=== PATIENT | female | born 1990 | race Caucasian/White ===

== ENCOUNTER → 2016-07-18 | Outpatient (CLI) | payer OTHER ==
[2016-07-18 12:03] LABS: ANION GAP 6 MEQ/L (8-16); BLOOD UREA NITROGEN 14 MG/DL (7-18); CALCIUM LEVEL 9.1 MG/DL (8.5-10.1); CARBON DIOXIDE LEVEL 31 MEQ/L (21-32); CHLORIDE LEVEL 105 MEQ/L (98-107); CHOLESTEROL LEVEL 169 MG/DL (<200); CREATININE FOR GFR 0.95 MG/DL (0.55-1.02); FREE T4 1.23 NG/DL (0.76-1.46); GLOMERULAR FILTRATION RATE > 60.0 (>60); GLUCOSE, FASTING 80 MG/DL (70-105); POTASSIUM SERUM 4.5 MEQ/L (3.5-5.1); SODIUM LEVEL 142 MEQ/L (136-145); TRIGLYCERIDES LEVEL 43 MG/DL (<150)
== END ==
LOC: M WUC 10:05
PROVIDERS: ATTEND Physician Assistant
DX: E06.3 Autoimmune thyroiditis (principal)

== ENCOUNTER → 2017-02-19 | Outpatient (CLI) | payer OTHER ==
[2017-02-19 13:10] LABS: FREE T4 1.31 NG/DL (0.76-1.46)
== END ==
LOC: M WUC 08:57
PROVIDERS: ATTEND Family Medicine
DX: E06.3 Autoimmune thyroiditis (principal)

== ENCOUNTER → 2018-08-06 | Outpatient (CLI) | payer OTHER ==
--- NOTE | 2018-08-06 14:39 | REP ---
Clinical: Pain to the first toe. Technique: AP, lateral, bilateral oblique views of the right first toe. Findings: No acute fracture or dislocation. Skeletal structures, joint spaces, and surrounding soft tissues are relatively normal for age. Impression: No acute fracture or dislocation. Electronically Signed by Moo Reed MD 08/06/2018 02:30 P
== END ==
LOC: M WUC 14:15
PROVIDERS: ATTEND Physician Assistant
DX: M79.674 Pain in right toe(s) (principal)

== ENCOUNTER → 2018-09-14 | Outpatient (CLI) | payer OTHER ==
[2018-09-14 09:56] LABS: FREE T4 1.19 NG/DL (0.76-1.46); THYROID STIMULATING HORMONE 2.24 uIU/ML (0.358-3.740)
[2018-09-14 09:58] LABS: TOTAL 25(OH) VITAMIN D 34.2 NG/ML (30.0-100.0)
== END ==
LOC: M WUC 08:04
PROVIDERS: ATTEND Family Medicine
DX: E06.3 Autoimmune thyroiditis (principal)

== ENCOUNTER → 2019-01-06 | Outpatient (CLI) | payer OTHER ==
[2019-01-06 18:01] LABS: BASO # 0.1 10^3/uL (0.0-0.2); BASO % 0.5 % (0.0-1.0); EOS # 0.3 10^3/uL (0.0-0.50); EOS % 2.6 % (0.0-3.0); HEMATOCRIT 39.2 % (36.0-47.0); LYMPH # 1.8 10^3/uL (1.5-6.5); LYMPH % 18.5 % (24.0-44.0); MEAN CORPUSCULAR HEMOGLOBIN 30.1 pg (27.0-33.0); MEAN CORPUSCULAR HGB CONC 35.7 g/dl (32.0-36.5); MEAN CORPUSCULAR VOLUME 84.3 fl (80.0-96.0); MONO # 0.7 10^3/uL (0.0-0.8); MONO % 7.3 % (0.0-5.0); NEUTROPHILS # 6.9 10^3/uL (1.8-7.7); NEUTROPHILS % 70.7 % (36.0-66.0); PLATELET COUNT, AUTOMATED 268 10^3/uL (150-450); RED BLOOD COUNT 4.65 10^6/uL (4.00-5.40); WHITE BLOOD COUNT 9.8 10^3/uL (4.0-10.0)
[2019-01-06 18:11] LABS: FREE T4 1.29 NG/DL (0.76-1.46)
[2019-01-06 18:23] LABS: RUBELLA IgG QUALITATIVE IMMUNE (IMMUNE)
[2019-01-06 18:52] LABS: HIV 1&2 SCREEN CENTAUR NEGATIVE (NEGATIVE)
[2019-01-06 19:54] LABS: CHLAMYDIA DNA AMPLIFICATION NEGATIVE (NEGATIVE); GC DNA AMPLIFICATION NEGATIVE (NEGATIVE)
[2019-01-09 12:02] LABS: HEPATITIS C VIRUS ABY INDEX 0.1 INDEX (<0.8)
== END ==
LOC: M SMT 13:44
PROVIDERS: ATTEND Advanced Practice Midwife
DX: Z34.81 Encounter for supervision of other normal pregnancy, first trimester (principal); Z3A.00 Weeks of gestation of pregnancy not specified

== ENCOUNTER → 2019-01-13 | Outpatient (CLI) | payer OTHER | LOC: M SMT 09:47 | PROVIDERS: ATTEND Advanced Practice Midwife | DX: Z13.79 Encounter for other screening for genetic and chromosomal anomalies (principal) ==

== ENCOUNTER → 2019-02-10 | Outpatient (CLI) | payer OTHER ==
[2019-02-10 18:55] LABS: FREE T4 1.33 NG/DL (0.76-1.46); THYROID STIMULATING HORMONE 3.31 uIU/ML (0.358-3.740)
== END ==
LOC: M SMT 12:07
PROVIDERS: ATTEND Advanced Practice Midwife
DX: O99.282 Endocrine, nutritional and metabolic diseases complicating pregnancy, second trimester (principal)

== ENCOUNTER → 2019-03-10 | Outpatient (CLI) | payer OTHER ==
--- NOTE | 2019-03-10 19:15 | REP ---
OB ULTRASOUND: Real-time sonographic evaluation of the gravid uterus performed. There is a single living intrauterine gestation, the estimated gestational age 18 weeks, EDC 08/11/2019. Today's measurements indicate appropriate growth. BPD 43 mm = 19 weeks 0 days, 78th percentile HC 160 mm = 18 weeks 6 days, 75th percentile AC 135 mm = 19 weeks 0 days, 70th percentile FL 27 mm = 18 weeks 2 days, 56th percentile HC/AC ratio 1.19, within normal range. Estimated weight 250 grams, 73rd percentile. Cervix is closed and measures 3.3 cm in length. heart rate 139 beats per minute. SEEN/GROSSLY UNREMARKABLE Lateral ventricles yes Posterior fossa yes Upper lip yes Four-chamber heart no LVOT no RVOT no Stomach yes Cord insertion yes Three vessel cord yes Kidneys yes Bladder yes Spine yes position: Oblique with head toward the maternal right side. Placenta: Anterior and grade 0 with no previa or abruption. Amniotic fluid: Within normal limits. Electronically Signed by Alex Cohen MD 03/13/2019 11:20 P
== END ==
LOC: M RAD 14:22
PROVIDERS: ATTEND Advanced Practice Midwife
DX: Z34.82 Encounter for supervision of other normal pregnancy, second trimester (principal)

== ENCOUNTER → 2019-04-14 | Outpatient (CLI) | payer OTHER ==
--- NOTE | 2019-04-14 19:16 | REP ---
Obstetric ultrasound for anatomy follow-up: Comparison is 03/10/2019. On the comparison study the lungs, four-chamber view of the heart and cardiac right and left ventricular outflow tracts and lower extremities are suboptimally demonstrated because of position. The remainder of the anatomy was unremarkable previously. On the study today the lungs, four-chamber view of the heart, cardiac right and left ventricular outflow tracts and lower extremities are optimally demonstrated and are unremarkable. The remainder of the anatomy is unremarkable as previously. There are no anomalies. There is a single intrauterine gestation in a vertex presentation. There is movement and cardiac activity. heart rate is 136 beats minute. The placenta is anterior, there is no previa or abruptio. Placenta is grade zero. The amniotic fluid volume subjectively is normal. Gestational age by today's ultrasound is 23 weeks 4 days/JOSE 08/07/2019. Gestational age by the first ultrasound is 23 weeks 5 days/JOSE 08/06/2019. Gestational age by LMP is 23 weeks 0 days/JOSE 08/10/2019. weight is 650 grams/1 pound, 6 ounces. This is the 77th percentile for 23 weeks 0 days. Electronically Signed by Alex Castellano MD 04/14/2019 07:08 P
== END ==
LOC: M RAD 15:38
PROVIDERS: ATTEND Advanced Practice Midwife
DX: Z36.9 Encounter for antenatal screening, unspecified (principal); Z3A.23 23 weeks gestation of pregnancy

== ENCOUNTER → 2019-05-12 | Outpatient (CLI) | payer OTHER ==
[2019-05-12 14:17] LABS: HEMATOCRIT 37.6 % (36.0-47.0); HEMOGLOBIN 12.9 g/dl (12.0-15.5); MEAN CORPUSCULAR HEMOGLOBIN 30.3 pg (27.0-33.0); MEAN CORPUSCULAR HGB CONC 34.3 g/dl (32.0-36.5); MEAN CORPUSCULAR VOLUME 88.3 fl (80.0-96.0); PLATELET COUNT, AUTOMATED 247 10^3/uL (150-450); RED BLOOD COUNT 4.26 10^6/uL (4.00-5.40); WHITE BLOOD COUNT 10.6 10^3/uL (4.0-10.0)
[2019-05-12 14:48] LABS: FREE T4 1.15 NG/DL (0.76-1.46); THYROID STIMULATING HORMONE 1.87 uIU/ML (0.358-3.740)
== END ==
LOC: M PLALAB 10:21
PROVIDERS: ATTEND Advanced Practice Midwife
DX: O99.282 Endocrine, nutritional and metabolic diseases complicating pregnancy, second trimester (principal)

== ENCOUNTER → 2019-07-14 | Outpatient (REF) | payer OTHER | LOC: M SFHCWAGY 13:10 | PROVIDERS: ATTEND Obstetrics & Gynecology | DX: O99.283 Endocrine, nutritional and metabolic diseases complicating pregnancy, third trimester (principal) ==

== ENCOUNTER 2019-08-19 09:30 | Inpatient (IN) | payer OTHER ==
[~2019-08-19] VITALS: Ht 167.6 cm; Wt 82.3 kg
[2019-08-19] VITALS (9 sets, daily range): BP systolic 104–139; BP diastolic 53–74
[2019-08-19] MEDS ORDERED: PREN29TA4 PO (09:52)
[2019-08-19] MEDS ORDERED: SYNT88TA2 PO (09:52)
[2019-08-19] MEDS ORDERED: OMEG10002 PO (09:52)
[2019-08-19] MEDS ORDERED: MULTCAP PO (09:53)
[2019-08-19] MEDS: miSOPROStol 50 MCG 1/2 TAB (S0191) PO SCH ×4 (10:44→23:11)
[2019-08-19 10:50] LABS: HEMATOCRIT 36.1 % (36.0-47.0); HEMOGLOBIN 12.3 g/dl (12.0-15.5); MEAN CORPUSCULAR HEMOGLOBIN 28.4 pg (27.0-33.0); MEAN CORPUSCULAR HGB CONC 34.1 g/dl (32.0-36.5); MEAN CORPUSCULAR VOLUME 83.4 fl (80.0-96.0); PLATELET COUNT, AUTOMATED 197 10^3/uL (150-450); RED BLOOD COUNT 4.33 10^6/uL (4.00-5.40); WHITE BLOOD COUNT 8.8 10^3/uL (4.0-10.0)
--- NOTE | 2019-08-19 14:39 | HPEPDOC ---
Obstetrical History & Physical General Date of Admission Aug 19, 2019 at 09:30 History of Present Illness Kamila is a 28-year-old 1, para 0 who presents at 41 weeks 1 day estimated gestational age by 9 week ultrasound for induction of labor for postdates. She is had unremarkable course. She initiated care first trimesters been appropriate throughout Chief Complaint: Induction of labor Information Provided By: Patient Age: 28 : 1 Care Care: Good Care Dating Final EDC: Aug 11, 2019 Final EDC by: 1st trimester ([place]) Estimated Date of Confinement: Aug 11, 2019 Past Medical History Past Obstetrical History : Past Obstetrical History: Primgravida [employer] History: No pertinent history Past Medical History Medical History Hypothyroidism Surgical History: [place] teeth Family History Significant Family History: Cancer, Hypertension Social History Marital Status: Psychosocial History: No pertinent psych hx * Smoker: non-smoker Drugs: denies Allergies Coded Allergies: alfalfa (Verified Allergy, Unknown, runny nose,itchy,swollen eyes,hayfever, 08/19/19) Medications Scheduled Levothyroxine Sodium (Synthroid) 88 Mcg Tablet, 1 TAB PO DAILY Multivitamin (Multivitamins) 1 Each Capsule, 1 CAP PO DAILY [place]-3/Dha/Epa/Fish Oil (Fish Oil 1,000 mg Softgel) 1 Each Capsule, 1 CAP PO DAILY Prenat 115/Iron Fum/Folic/Dss ( 19 Tablet) 1 Each Tablet, 1 TAB PO DAILY Physical Examination Physical Examination GENERAL: Alert and oriented times three. BREAST: . ABDOMEN: Gravid and non-tender to touch. FETUS: Is vertex (VTX) by sterile vaginal examination (SVE), fetus is vertex (VTX) by Vahid. HEART RATE: Regular rate and rhythm. LUNGS: Clear to auscultation (CTA). Vital Signs/I&O Vital Signs Date Time Temp Pulse Resp B/P (MAP) Pulse Ox O2 Delivery O2 Flow Rate FiO2 08/19/19 13:41 90 20 139/66 (90) 08/19/19 13:04 98 Room Air 08/19/19 12:05 97.4 Laboratory Data 24H LABS Laboratory Tests 2 08/19/19 09:42: Serology Scanned Report Hepatitis B Testing 08/19/19 10:38: Nucleated Red Blood Cells % (auto) 0.0 CBC/BMP Laboratory Tests 08/19/19 10:38 Pertinent Laboratoy Data Blood Type: B+ RBC Antibody Screen: Negative HIV: Negative Hepatitis B: Negative Hepatitis C: Negative Rapid Plasma Reagin: Nonreactive Rubella: Immune Chlamydia/Gonorrhea: Negative Group B Streptococcus: Negative Anatomy Ultrasound Placenta Location: Anterior Normal Anatomy: Yes Placenta Previa: No Estimated Weight (grams): 4100 Vaginal Examination Dilation: 1cm Effacement: 50% Cervical Consistency: Medium Cervical Position: Posterior Presentation: Cephalic presentation Assessment Accelerations: Positive Tocometer Contractions: No Assessment/Plan Assessment Kamila is a 28-year-old (G) 1 para 41 weeks by 9-week ultrasound. Presents to Labor and Delivery (L&D) induction of labor. Reassuring status. Plan Admit and orient. Chief Operator and consent. Diet: Regular. Group B Streptococcus (GBS) negative. Labs and intravenous (IV) per unit protocol. Will begin induction with Cytotec Counseled on Pitocin and induction of labor (IOL). Anticipate normal spontaneous delivery (). C-S as appropriate. ROWAN MCMULLEN MD. Aug 19, 2019 14:39
[2019-08-20] VITALS (40 sets, daily range): BP systolic 83–160; BP diastolic 45–102
[2019-08-20] MEDS: miSOPROStol 50 MCG 1/2 TAB (S0191) PO SCH (03:25)
[2019-08-20] MEDS: LR 1,000 ML IV SCH ×2 (08:55→14:56)
[2019-08-20] MEDS ORDERED: OXYTOCIN DRIP 30 UNITS in IV 1 EA IV SCH (09:00)
[2019-08-20] MEDS ORDERED: FENTANYL 2MCG/ML ROPIVACAINE 0.2% IN 0.9% NACL 100ML IVBAG As Ordered ONE (19:30)
[2019-08-20] MEDS ORDERED: ePHEDrine SULFATE 25 MG/5 ML(5MG/ML) SYRINGE IV PRN (21:00)
[2019-08-20] MEDS ORDERED: ONDANSETRON 4MG/2ML VIAL (J2405) IV PRN (21:00)
[2019-08-20] MEDS ORDERED: REFRIGERATOR IV KEYS XX PRN (21:00)
[2019-08-20] MEDS ORDERED: diphenhydrAMINE INJ 50MG/ML VIAL (J1200) IV PRN (21:00)
[2019-08-20] MEDS: FENTANYL/ROPIVACAINE/NACL BAG 100 ML EPIDURAL SCH (21:00)
[2019-08-20] MEDS ORDERED: NALOXONE INJ 0.4 MG/1 ML VIAL (J2310) IV PRN (21:00)
[2019-08-20] MEDS ORDERED: EPIDURAL COMMENT XX SCH (21:00)
[2019-08-20] MEDS ORDERED: EPIDURAL/PCA KEYS XX PRN (21:00)
[2019-08-21] VITALS (24 sets, daily range): BP systolic 88–131; BP diastolic 50–73
[2019-08-21] MEDS: LR 1,000 ML IV SCH ×3 (01:00→21:53)
[2019-08-21] MEDS ORDERED: FENTANYL 2MCG/ML ROPIVACAINE 0.2% IN 0.9% NACL 100ML IVBAG As Ordered ONE (04:36)
[2019-08-21] MEDS: FENTANYL/ROPIVACAINE/NACL BAG 100 ML EPIDURAL SCH (04:42)
--- NOTE | 2019-08-21 06:58 | IPNPDOC ---
Obstetrical Progress Note Date of Service Aug 20, 2019 Subjective Doing well w/o complaints. cx; 1-2/50/-3,Explosives Handler cath placed 60/40 Objective Vital Signs Date Time Temp Pulse Resp B/P (MAP) Pulse Ox O2 Delivery O2 Flow Rate FiO2 08/21/19 04:41 63 95/54 (68) 08/20/19 18:33 97.9 20 98 Room Air Assessment Variability: Moderate Heart Rate Tracing: Category I Tocometer Contractions: Yes Frequency: regular Sterile Vaginal Examination Dilation: 1cm Effacement (%): 50% Station: -3 Cervical Consistency: Medium Cervical Position: Posterior Postion/Presentation: Cephalic presentation Assessment and Plan Status: Reassuring Group B Streptococcus: Negative ROWAN MCMULLEN MD. Aug 21, 2019 06:58
--- NOTE | 2019-08-21 07:00 | IPNPDOC ---
Obstetrical Progress Note Subjective Comfortable with epidural. Min cx changes over 9hrs. Currently 475/-2 Objective Vital Signs Date Time Temp Pulse Resp B/P (MAP) Pulse Ox O2 Delivery O2 Flow Rate FiO2 08/21/19 04:41 63 95/54 (68) 08/20/19 18:33 97.9 20 98 Room Air Assessment Variability: Moderate Accelerations: Positive Heart Rate Tracing: Category I Tocometer Frequency: regular Sterile Vaginal Examination Dilation: 4 cm Effacement (%): 80% Station: -2 Cervical Consistency: Soft Postion/Presentation: Cephalic presentation Assessment and Plan Group B Streptococcus: Negative ROWAN MCMULLEN MD. Aug 21, 2019 07:00
[2019-08-21] MEDS ORDERED: AZITHROMYCIN INJ 500 MG, VIAL MATE ADAPTER 1 EACH in D5W 250 ML IV ONE (07:15)
[2019-08-21] MEDS ORDERED: BICITRA 30ML SOLN UDC PO ONE (07:15)
[2019-08-21] MEDS ORDERED: ceFAZolin SOD 2 GM in IV 1 EA IV ONE (07:15)
[2019-08-21] MEDS ORDERED: ceFAZolin 2 GM/D5W 50 ML IV BAG (J0690 PER 500MG) As Ordered ONE (07:16)
[2019-08-21] MEDS ORDERED: BICITRA 30ML SOLN UDC As Ordered ONE (07:16)
[2019-08-21] MEDS ORDERED: AZITHROMYCIN INJ 500MG VIAL (J0456) As Ordered ONE (07:17)
[2019-08-21] MEDS ORDERED: MORPHINE PRES-FREE INJ 10 MG/10 ML VIAL (J2274) As Ordered ONE (07:23)
[2019-08-21] MEDS ORDERED: OXYTOCIN INJ 10 UNITS/ML VIAL (J2590) As Ordered ONE (07:25)
[2019-08-21] MEDS ORDERED: LIDOCAINE 2% W/EPIN INJ 20ML **PRES FREE As Ordered ONE (07:27)
[2019-08-21] MEDS ORDERED: dexameTHASONE 4 MG/ML 1ML VIAL (J1100) As Ordered ONE (07:54)
[2019-08-21] MEDS ORDERED: ONDANSETRON 4MG/2ML VIAL (J2405) As Ordered ONE (07:54)
[2019-08-21] MEDS ORDERED: METOCLOPRAMIDE INJ 10MG/2ML VIAL (J2765) IV PRN (08:00)
[2019-08-21] MEDS ORDERED: NALBUPHINE HCL 10 MG/ML AMP (J2300) IV PRN ×2 (08:00→09:00)
[2019-08-21] MEDS ORDERED: diphenhydrAMINE INJ 50MG/ML VIAL (J1200) IV PRN (08:00)
[2019-08-21] MEDS ORDERED: ONDANSETRON 4MG/2ML VIAL (J2405) IV PRN ×3 (08:00→09:00)
[2019-08-21] MEDS ORDERED: NALOXONE INJ 0.4 MG/1 ML VIAL (J2310) IV PRN ×2 (08:00)
[2019-08-21] MEDS ORDERED: ePHEDrine SULFATE 25 MG/5 ML(5MG/ML) SYRINGE As Ordered ONE (08:21)
[2019-08-21] MEDS ORDERED: PHENYLephrine HCL 500 MCG/5 ML (100MCG/ML) SYRINGE (J2370) As Ordered ONE (08:21)
[2019-08-21] MEDS ORDERED: OXYTOCIN 30 UNITS IN 0.9% NaCl 500ML IV BAG (J2590) As Ordered ONE (08:37)
[2019-08-21] MEDS ORDERED: OXYTOCIN DRIP 30 UNITS in IV 1 EA IV SCH (08:41)
[2019-08-21] MEDS ORDERED: RHOGAM 300 MCG (1500 IU) INJ (J2790) IM SCH (08:45)
[2019-08-21] MEDS ORDERED: PERCOCET 5MG/325MG TAB PO PRN (08:45)
[2019-08-21] MEDS ORDERED: MOM 30ML SUSPENSION UDC PO PRN (08:45)
[2019-08-21] MEDS ORDERED: MEASLES,MUMPS,RUBELLA VACCINE INJ (MMR-II) (90707) SC SCH (08:45)
--- NOTE | 2019-08-21 08:48 | ROOPDOC ---
[facility] Report Of Operation Report of Operation DATE OF PROCEDURE: 08/21/19 SURGEON: Cici Laguna M.D. PERCH MACHINE INSPECTOR: Flakita Laguerre CNM ANESTHESIA:. Epidural ESTIMATED BLOOD LOSS: 700 mL URINE OUTPUT: 25 mL INTRAVENOUS FLUIDS: 1 L lactated Ringer solution PREOPERATIVE ANTIBIOTICS:. 2 g of Ancef and 500mg azithromycin OPERATIVE FINDINGS: Liveborn female , Apgars 9 and 9. Weight was 3080 g or 8 lbs. 9 oz. SPECIMENS:. None INDICATIONS FOR PROCEDURE: Arrested dilation DESCRIPTION OF PROCEDURE: After informed consent was obtained and written consent was reviewed. The patient was brought to the operating room where spinal anesthesia was placed. She was then placed in the supine position with a left lateral tilt. Cespedes catheter was placed and to gravity. Patient was then prepped and draped in the normal sterile fashion. A timeout operating room was performed identifying the patient, procedure be performed as well as drug allergies. Anesthesia was tested and deemed to be adequate. Pfannenstiel skin incision was made and this was carried down to the underlying rectus fascia. The fascia was then scored and this incision was extended bilaterally. The fascia was then dissected off the underlying rectus muscle superiorly and inferiorly. The rectus muscles were then in the midline. The peritoneum is then entered. Vesicouterine peritoneum was then tented and excised and a bladder flap was created. Mobius retractor was then placed. Next, a curvilinear incision was then made in the lower uterine segment. Amniotomy was performed, productive, clear fluid. The head was brought to the level of the incision atraumatically and delivered along the shoulders and corpus. The cord was clamped 2. The infant was brought over to the warmer with a good cry. Placenta was drained and delivered grossly intact. The uterus was cleared of all clots and debris and the uterine incision was then closed in 2 layers using 0 Vicryl, first in a running locking fashion followed by second layer for imbrication. The abdomen suctioned. Surgical sites reinspected and noted be hemostatic. The retractor was then removed. The anterior peritoneum was then reapproximated with 3-0 Vicryl. The rectus muscles were reapproximated 3-0 Vicryl. The fascia was then closed using 0 Vicryl in a running nonlocking fashion. The subcutaneous tissues was then irrigated and suctioned. Subcutaneous tissue was reapproximated using 3-0 Vicryl. Several subdermal stitch is placed using 3-0 Vicryl and the skin was closed with 4-0 Monocryl and subarticular fashion. This incision was then cleaned and dried and was dressed. The patient was then taken to recovery in stable condition. All counts were correct. The cup was decided to do the My family assistant played in an essential roll during the operation. They assisted with tissue identification retraction, delivery of the , as well as wound closure. CICI LAGUNA MD. Aug 21, 2019 08:48
[2019-08-21] MEDS: PRENATAL VITAMINS CHEWABLE TABLET PO SCH (09:00)
[2019-08-21] MEDS: DOCUSATE SODIUM 100 MG CAP PO SCH ×2 (09:00→21:09)
[2019-08-21] MEDS ORDERED: fentaNYL 100 MCG/2 ML INJECTION (J3010) As Ordered ONE (09:01)
[2019-08-21] MEDS: fentaNYL 100 MCG/2 ML INJECTION (J3010) IV PRN ×2 (09:05→09:10)
[2019-08-21] MEDS ORDERED: KETOROLAC 30 MG/ML VIAL (J1885) As Ordered ONE (09:22)
[2019-08-21] MEDS: KETOROLAC 30 MG/ML VIAL (J1885) IV SCH ×3 (09:23→21:09)
[2019-08-21] MEDS: PERCOCET 5MG/325MG TAB PO PRN (12:02)
[2019-08-22] MEDS: LR 1,000 ML IV SCH (00:41)
[2019-08-22 02:00] VITALS: BP 102/57
[2019-08-22] MEDS: KETOROLAC 30 MG/ML VIAL (J1885) IV SCH (02:05)
[2019-08-22 06:00] VITALS: BP 110/51
[2019-08-22 07:11] LABS: HEMATOCRIT 29.2 % (36.0-47.0); HEMOGLOBIN 9.9 g/dl (12.0-15.5); MEAN CORPUSCULAR HEMOGLOBIN 28.7 pg (27.0-33.0); MEAN CORPUSCULAR HGB CONC 33.9 g/dl (32.0-36.5); MEAN CORPUSCULAR VOLUME 84.6 fl (80.0-96.0); PLATELET COUNT, AUTOMATED 169 10^3/uL (150-450); RED BLOOD COUNT 3.45 10^6/uL (4.00-5.40); WHITE BLOOD COUNT 11.1 10^3/uL (4.0-10.0)
--- NOTE | 2019-08-22 07:40 | IPNPDOC ---
Progress Note Date of Service: Aug 22, 2019 Day#: 1 Progress Note SUBJECT: Patient is a 28-year-old female who is a who had a section for failure to progress. Her catheter is out and she has a saline lock in. She has been ambulating, voiding spontaneously without issue and tolerating regular diet. Breast feeding without issue. OBJECTIVE: VITAL SIGNS: Within normal limits, afebrile. Alert and oriented times three. Breath sounds clear to auscultation. Heart rate: Regular rate and rhythm, no murmurs, rubs or gallops. Abdomen: Fundus firm at U-1. Dressing is present with a small amount of blood present on dressing. Minimal lochia. ASSESSMENT: Day 1 postoperative. PLAN: 1. Continue with nursing supportive care and breast feeding support. 2. Encouraged ambulation today and patient may shower. 3. Continue with pain management. 4. Anticipate discharge to home tomorrow. VS, I&O, 24H, Fishbone Vital Signs/I&O Vital Signs Date Time Temp Pulse Resp B/P (MAP) Pulse Ox O2 Delivery O2 Flow Rate FiO2 08/22/19 06:00 98.5 76 20 110/51 (70) 98 Room Air I&O- Last 24 Hours up to 6 AM 08/22/19 06:00 Intake Total 993.1 ml Output Total 2375 ml Balance -1381.9 ml Laboratory Data 24H LABS Laboratory Tests 2 08/22/19 06:56: Nucleated Red Blood Cells % (auto) 0.0 CBC/BMP Laboratory Tests 08/22/19 06:56 WENDIE VICTORIA CNM Aug 22, 2019 07:40
[2019-08-22] MEDS: LEVOTHYROXINE 88MCG TABLET (0.088 MG) PO SCH (09:45)
[2019-08-22] MEDS: PRENATAL VITAMINS CHEWABLE TABLET PO SCH (09:45)
[2019-08-22] MEDS: DOCUSATE SODIUM 100 MG CAP PO SCH ×2 (09:45→21:17)
[2019-08-22 10:08] VITALS: BP 120/61
[2019-08-22] MEDS: IBUPROFEN 800 MG TAB PO SCH ×2 (10:49→18:41)
[2019-08-22] MEDS: PERCOCET 5MG/325MG TAB PO PRN ×2 (13:47→21:18)
[2019-08-22 14:00] VITALS: BP 92/52
[2019-08-22] MEDS ORDERED: PERCOCET PO (15:33)
[2019-08-22] MEDS ORDERED: IBUP80TA PO (15:33)
[2019-08-22 18:03] VITALS: BP 123/75
[2019-08-22 21:40] VITALS: BP 121/60
[2019-08-23 02:27] VITALS: BP 94/54
[2019-08-23] MEDS: IBUPROFEN 800 MG TAB PO SCH ×2 (02:27→10:44)
[2019-08-23] MEDS: LEVOTHYROXINE 88MCG TABLET (0.088 MG) PO SCH (05:47)
[2019-08-23 05:50] VITALS: BP 112/69
[2019-08-23] MEDS: DOCUSATE SODIUM 100 MG CAP PO SCH (09:22)
[2019-08-23] MEDS: PRENATAL VITAMINS CHEWABLE TABLET PO SCH (09:22)
[2019-08-23] MEDS: PERCOCET 5MG/325MG TAB PO PRN (10:45)
== END 2019-08-23 12:25 | disposition home or self-care (01) | DRG 773 ==
LOC: M LDI 09:30 → M OBS 08-21 09:54
PROVIDERS: ADMIT Obstetrics & Gynecology; ATTEND Obstetrics & Gynecology
PROC: 3E0P7GC Introduction of Other Therapeutic Substance into Female Reproductive, Via Natural or Artificial Opening (ICD-10-PCS; 2019-08-19)
PROC: 10D00Z1 Extraction of Products of Conception, Low, Open Approach (ICD-10-PCS; principal; 2019-08-21 07:40)
DX: O48.0 Post-term pregnancy (principal); Z3A.41 41 weeks gestation of pregnancy; Z37.0 Single live birth; O99.284 Endocrine, nutritional and metabolic diseases complicating childbirth; E03.9 Hypothyroidism, unspecified; O62.0 Primary inadequate contractions

== ENCOUNTER → 2020-03-30 | Outpatient (CLI) | payer OTHER ==
[~2020-03-30] MED LIST: IBUP80TA PO; MULTCAP PO; OMEG10002 PO; PERCOCET PO; PREN29TA4 PO; SYNT88TA2 PO
[2020-03-30 15:46] LABS: BASO % 0.4 % (0.0-1.0); EOS # 0.3 10^3/uL (0.0-0.5); EOS % 6.4 % (0.0-3.0); HEMATOCRIT 43.8 % (36.0-47.0); HEMOGLOBIN 14.2 g/dl (12.0-15.5); LYMPH # 1.3 10^3/uL (1.5-5.0); LYMPH % 26.3 % (24.0-44.0); MEAN CORPUSCULAR HEMOGLOBIN 28.2 pg (27.0-33.0); MEAN CORPUSCULAR HGB CONC 32.4 g/dl (32.0-36.5); MEAN CORPUSCULAR VOLUME 87.1 fl (80.0-96.0); MONO # 0.4 10^3/uL (0.0-0.8); MONO % 8.2 % (0.0-5.0); NEUTROPHILS # 2.9 10^3/uL (1.5-8.5); NEUTROPHILS % 58.5 % (36.0-66.0); PLATELET COUNT, AUTOMATED 228 10^3/uL (150-450); RED BLOOD COUNT 5.03 10^6/uL (4.00-5.40)
[2020-03-30 15:56] LABS: ALBUMIN 3.8 GM/DL (3.2-5.2); ALT/SGPT 21 U/L (12-78); BILIRUBIN,TOTAL 0.5 MG/DL (0.2-1.0); BLOOD UREA NITROGEN 14 MG/DL (7-18); CARBON DIOXIDE LEVEL 31 MEQ/L (21-32); CHLORIDE LEVEL 107 MEQ/L (98-107); FREE T4 1.06 NG/DL (0.76-1.46); GLOMERULAR FILTRATION RATE > 60.0 (>60); GLUCOSE, FASTING 84 MG/DL (70-100); POTASSIUM SERUM 4.7 MEQ/L (3.5-5.1); SODIUM LEVEL 141 MEQ/L (136-145)
[2020-04-01 11:56] LABS: TOTAL 25(OH) VITAMIN D 39.5 NG/ML (30.0-100.0)
[2020-04-02 11:07] LABS: TISSUE TRANSGLUTAMINASE IgA <2 U/mL (0-3); TISSUE TRANSGLUTAMINASE IgG 5 U/mL (0-5); UNITSIGA FOR GLIADIN IGA 3 units (0-19); UNITSIGG FOR GLIADIN IGG 3 units (0-19)
== END ==
LOC: M WUC 08:59
PROVIDERS: ATTEND Family Medicine
DX: E06.3 Autoimmune thyroiditis (principal); L40.8 Other psoriasis; Z13.29 Encounter for screening for other suspected endocrine disorder; Z13.0 Encounter for screening for diseases of the blood and blood-forming organs and certain disorders involving the immune mechanism

== ENCOUNTER → 2020-06-06 | Outpatient (CLI) | payer SELFPAY | LOC: M LABSMTC 13:01 | PROVIDERS: ATTEND Pediatrics | DX: Z20.828 Contact with and (suspected) exposure to other viral communicable diseases (principal) ==

== ENCOUNTER 2020-08-24 06:50 | Emergency (ER) | payer OTHER ==
[~2020-08-24] VITALS: Ht 167.6 cm; Wt 65.6 kg
[2020-08-24 07:56] LABS: BASO % 0.7 % (0.0-1.0); EOS # 0.2 10^3/uL (0.0-0.5); EOS % 3.9 % (0.0-3.0); HEMATOCRIT 44.3 % (36.0-47.0); HEMOGLOBIN 15.1 g/dl (12.0-15.5); LYMPH # 1.6 10^3/uL (1.5-5.0); LYMPH % 25.9 % (24.0-44.0); MEAN CORPUSCULAR HEMOGLOBIN 29.2 pg (27.0-33.0); MEAN CORPUSCULAR HGB CONC 34.1 g/dl (32.0-36.5); MEAN CORPUSCULAR VOLUME 85.5 fl (80.0-96.0); MONO # 0.5 10^3/uL (0.0-0.8); MONO % 7.7 % (2.0-8.0); NEUTROPHILS # 3.7 10^3/uL (1.5-8.5); NEUTROPHILS % 61.5 % (36.0-66.0); PLATELET COUNT, AUTOMATED 220 10^3/uL (150-450); RED BLOOD COUNT 5.18 10^6/uL (4.00-5.40); WHITE BLOOD COUNT 6.1 10^3/uL (4.0-10.0)
[2020-08-24 10:14] LABS: BLOOD UREA NITROGEN 13 MG/DL (7-18); CALCIUM LEVEL 8.5 MG/DL (8.5-10.1); CARBON DIOXIDE LEVEL 29 mmol/L (20-29); CHLORIDE LEVEL 106 MEQ/L (98-107); CREATININE FOR GFR 0.81 MG/DL (0.55-1.30); GLOMERULAR FILTRATION RATE > 60.0 (>60); GLUCOSE, FASTING 99 MG/DL (70-100); POTASSIUM SERUM 4.2 MEQ/L (3.5-5.1); SODIUM LEVEL 140 MEQ/L (136-145)
[2020-08-24] MEDS ORDERED: ISOVUE-370 76% 100ML VIAL As Ordered ONE (10:14)
[2020-08-24 10:15] LABS: ALBUMIN 3.9 GM/DL (3.2-5.2); ALT/SGPT 20 IU/L (0-32); BILIRUBIN,DIRECT 0.2 MG/DL (0.0-0.2); BILIRUBIN,TOTAL 0.7 MG/DL (0.2-1.0); LIPASE 130 U/L (73-393); TOTAL PROTEIN 7.1 GM/DL (6.4-8.2)
--- NOTE | 2020-08-24 10:42 | REP ---
INDICATION: rlq pain. COMPARISON: None. TECHNIQUE: Abdomen/pelvis CT with IV contrast, without bowel contrast FINDINGS: The visualized lung reynoso are unremarkable. The hepatic parenchyma is unremarkable. The gallbladder is unremarkable. Gallbladder septation is incidentally identified. The pancreas and spleen are unremarkable. The adrenals and kidneys are unremarkable. There is wall thickening of the duodenal loop. This is nonspecific and could be artifact from under distention or could represent wall edema. The abdominal aorta is unremarkable. There is no periaortic adenopathy or mass. There is no bowel distention or obstruction. The mesentery is unremarkable. Pelvis: The appendix and terminal ileum are unremarkable. The uterus is unremarkable. There is a follicle in each right and left adnexa. The adnexa are otherwise unremarkable. There is no ascites. There is no adenopathy. The bladder is unremarkable. IMPRESSION: The appendix is unremarkable. There is a follicle in the right adnexa and follicle in the left adnexa. There is no adenopathy or free fluid. No bowel distention or obstruction. There is wall thickening of the duodenal loop, nonspecific, artifact from underdistention versus edema/inflammation. <Electronically signed by Alex Castellano > 08/24/20 [id number]
[2020-08-24 10:58] VITALS: BP 130/59
== END 2020-08-24 11:05 | disposition home or self-care (01) ==
LOC: M ED 06:50
DX: N83.201 Unspecified ovarian cyst, right side (principal); E03.9 Hypothyroidism, unspecified; Z91.048 Other nonmedicinal substance allergy status
CPT/HCPCS: 36415; 74177; 80048; 80076; 81001; 83690; 84439; 84443; 84481; 84702; 85025; 99284; Q9967

== ENCOUNTER → 2020-09-01 | Outpatient (REF) | LOC: M LABSMTC 10:01 | PROVIDERS: ATTEND Pediatrics | DX: Z11.52 Encounter for screening for COVID-19 (principal) ==

== ENCOUNTER → 2020-09-04 | Outpatient (REF) | LOC: M LABSMTC 10:22 | PROVIDERS: ATTEND Pediatrics | DX: Z11.52 Encounter for screening for COVID-19 (principal) ==

== ENCOUNTER → 2020-09-10 | Outpatient (CLI) | payer OTHER ==
[2020-09-10 12:22] LABS: FREE T4 1.07 NG/DL (0.76-1.46); THYROID STIMULATING HORMONE 3.33 uIU/ML (0.358-3.740); TOTAL 25(OH) VITAMIN D 29.3 NG/ML (30.0-100.0)
== END ==
LOC: M WUC 08:46
PROVIDERS: ATTEND Family Medicine
DX: E06.3 Autoimmune thyroiditis (principal)